=== PATIENT | female | born 1965 | race African-American/Black ===

== ENCOUNTER 2022-05-24 17:30 | Outpatient (CLI) | payer BC | END 2022-05-24 17:31 | disposition home or self-care (01) | LOC: SLEEPLAB 17:30 | PROVIDERS: ATTEND Specialist | DX: G47.33 Obstructive sleep apnea (adult) (pediatric) (principal); R53.83 Other fatigue; R09.89 Other specified symptoms and signs involving the circulatory and respiratory systems; R51.9 Headache, unspecified; G31.84 Mild cognitive impairment of uncertain or unknown etiology; R06.83 Snoring; I25.10 Atherosclerotic heart disease of native coronary artery without angina pectoris; G47.00 Insomnia, unspecified; I10 Essential (primary) hypertension; G47.10 Hypersomnia, unspecified | CPT/HCPCS: 95800 ==